=== PATIENT | female | born 1945 | race Caucasian/White ===

== ENCOUNTER 2017-11-26 06:50 | Day surgery (SDC) | payer MEDICARE, OTHER ==
[~2017-11-26] VITALS: Ht 160 cm; Wt 74.8 kg
[~2017-11-26 06:50] MED LIST: AMLODIPINE BESY10 MG; LANTUS100 UNITS/; LEVOTHYROXINE88 MCG PO; LISINOPRIL-HCT1 EAC2; NORCO 7.5-3251 EACH PO; NOVOLOG100 UNITS/; ULTRAM50 MG PO; ZOCOR40 MG
[2017-11-26] MEDS ORDERED: LISINOPRIL-HCT1 EACH PO (07:19)
[2017-11-26] MEDS ORDERED: NOVOLOG100 UNIT/2 (07:20)
[2017-11-26] MEDS ORDERED: SIMVASTATIN40 MG PO (07:20)
--- NOTE | 2017-11-27 06:10 | OR ---
[facility] [address] [place], [place] [address] Signed DATE OF OPERATION: 11/26/2017 SURGEON: Osmel Phipps MD PREOPERATIVE DIAGNOSES: 1. Change in bowel habits with diarrhea and rectal bleeding. 2. Hemorrhoids. 3. Irritable bowel syndrome. POSTOPERATIVE DIAGNOSES: 1. Minimal internal hemorrhoids. 2. A 5 mm polyp, proximal right colon. PROCEDURE: Colonoscopy with hot biopsy. ESTIMATED BLOOD LOSS: None. INDICATIONS: Jaz is a 72-year-old female, asked to see me for colonoscopy. She had a change in bowel habits with diarrhea and rectal bleeding. She said that has now improved. She also has a history of irritable bowel syndrome. Consequently, she had a flexible sigmoidoscopy around age 42. However, she has never had a full colonoscopy. She told me there is no family history of colon cancer or polyps. I gave her a booklet in the office on colonoscopy. We looked at that together along with the risks including, but not limited to, gas bloating, crampy abdominal pain, bleeding, perforation, requiring surgery, and missed diagnosis. We also discussed the need for IV conscious sedation. She expressed understanding and wished to proceed. PROCEDURE NOTE: Jaz was taken into our endoscopy suite and placed in the left lateral decubitus position. She was given IV sedation with 8 mg of Versed and 150 mcg of fentanyl. A digital rectal exam was performed and this was unremarkable. The adult colonoscope was then introduced and advanced all around into the cecum under direct visualization of camera without difficulty. Overall prep was good. She had a couple areas of liquid particulate stool matter, we could not quite irrigate and suction out completely. She had just a tiny 5 mm polyp in the proximal right colon, which we removed with hot biopsy forceps. No evidence of any diverticula. The rectum was unremarkable. Upon retroflexion of the scope, she does have some minimal internal hemorrhoid tissue. After Electronically Signed By: OSMEL PHIPPS MD 11/27/17 0610 PATIENT NAME: JAZ FLOWERS OPERATIVE REPORT DATE OF : 49 REPORT #: [id number] PHYSICIAN: OSMEL PHIPPS MD PCP: WIN ESCOBEDO MD REPORT IS CONFIDENTIAL AND NOT TO BE RELEASED WITHOUT AUTHORIZATION [address] [place], [place] [address] Signed this, the gas was suctioned out and the colonoscope removed. Jaz tolerated the procedure quite well. RECOMMENDATIONS: I will see Jaz back in my office in 7 to 14 days to review her results. Osmel Phipps MD ALB/MODL /[id number] cc: MD Osmel Lopes MD Copies: WIN ESCOBEDO MD, ANDREW L MD ~ Electronically Signed By: OSMEL PHIPPS MD 11/27/17 0610 PATIENT NAME: JAZ FLOWERS OPERATIVE REPORT DATE OF : 49 REPORT #: [id number] PHYSICIAN: OSMEL PHIPPS MD PCP: WIN ESCOBEDO MD REPORT IS CONFIDENTIAL AND NOT TO BE RELEASED WITHOUT AUTHORIZATION
== END 2017-11-26 10:30 | disposition home or self-care (01) ==
LOC: DS 06:50 → OPS 06:50 → DS 08:15 → OPS 08:15
PROVIDERS: Colon & Rectal Surgery
PROC: 0DBK8ZX Excision of Ascending Colon, Via Natural or Artificial Opening Endoscopic, Diagnostic (ICD-10-PCS; principal; 2017-11-26 08:15)
DX: D12.2 Benign neoplasm of ascending colon (principal); K64.8 Other hemorrhoids; I10 Essential (primary) hypertension; K58.9 Irritable bowel syndrome, unspecified; E11.9 Type 2 diabetes mellitus without complications; Z98.890 Other specified postprocedural states; Z88.1 Allergy status to other antibiotic agents; Z79.4 Long term (current) use of insulin; Z79.899 Other long term (current) drug therapy
CPT/HCPCS: 88305; 99153; G0500; J2250; J3010; J7120

== ENCOUNTER 2017-12-03 16:01 | Emergency (ER) | payer MEDICARE, OTHER ==
[~2017-12-03] VITALS: Ht 160 cm; Wt 74.8 kg
[~2017-12-03 16:01] MED LIST changes: +LISINOPRIL-HCT1 EACH PO; +NOVOLOG100 UNIT/2; +SIMVASTATIN40 MG PO
== END 2017-12-03 17:30 | disposition home or self-care (01) ==
LOC: ED 16:01
DX: E11.649 Type 2 diabetes mellitus with hypoglycemia without coma (principal); I10 Essential (primary) hypertension; Z88.1 Allergy status to other antibiotic agents; Z88.2 Allergy status to sulfonamides; Z79.4 Long term (current) use of insulin; Z79.899 Other long term (current) drug therapy
CPT/HCPCS: 80048; 85025; 99283

== ENCOUNTER 2020-10-11 06:11 | Day surgery (SDC) | payer MEDICARE, OTHER ==
[~2020-10-11] VITALS: Ht 160 cm; Wt 81.3 kg
--- NOTE | 2020-10-11 08:21 | NUR ---
10/11/20 0821 Olivia Dawson 0816 PATIENT ARRIVES TO PACU RESTING QUIETLY WITH EYES CLOSED. AWAKE OFF/ON. RESP EVEN AND UNLABORED, NC AT 3 LITERS. PATIENT DENIES PAIN OR NAUSEA. PASSING GAS.
--- NOTE | 2020-10-11 09:14 | NUR ---
LE 0900: PATIENT IS BACK TO DAYSURGERY FROM PACU. SHE IS AWAKE AND DRESSED. GIVEN DISCHARGE INSTRUCTIONS IN PACU. TOLERATING FLUIDS, GIVEN COFFEE, BREAKFAST ORDERED. CALL LIGHT WITHIN REACH. NO ADDITONAL NEEDS AT THIS TIME.
--- NOTE | 2020-10-11 10:38 | OR ---
[facility] [address] [place], [place] [address] Signed DATE OF OPERATION: 10/11/2020 SURGEON: Osmel Phipps MD PREOPERATIVE DIAGNOSES: 1. Anemia. 2. Irritable bowel syndrome. 3. Internal hemorrhoids. 4. History of colonic polyp in 2018. POSTOPERATIVE DIAGNOSES: 1. Minimal diffuse gastritis. 2. A 3 mm periappendiceal orifice polyp. 3. Minimal internal hemorrhoids. PROCEDURES: 1. EGD with CLOtest and biopsy of the antrum. 2. Colonoscopy with hot biopsy. ESTIMATED BLOOD LOSS: None. INDICATIONS: Jaz is a 74-year-old female, asked to see me for upper and lower endoscopy. In 2018, her colonoscopy revealed a small 5 mm adenomatous polyp in the proximal right colon. She also had minimal internal hemorrhoids. She is known to have irritable bowel syndrome as well. However more recently she has been anemic. Consequently, she has been asked to undergo both upper and lower endoscopy. She really has no upper or lower GI complaints. No family history of colon cancer or polyps. In the office, I gave her pamphlets on both upper and lower endoscopy. We looked at those together along with the risks including, but not limited to gas bloating, crampy abdominal pain, bleeding, perforation requiring surgery, and missed diagnosis. We also reviewed the need for IV conscious sedation. She had expressed understanding and wished to proceed. PROCEDURE NOTE: Jaz was taken into our endoscopy suite and placed in the supine semi-recumbent position. She was given a total of 8 mg of Versed and 175 mcg of fentanyl to cover both cases. Lidocaine spray was used to anesthetize the posterior oropharynx. A bite block was utilized. The adult gastroscope was introduced and advanced out into the 2nd portion of the duodenum under direct visualization of camera without difficulty. The Electronically Signed By: OSMEL PHIPPS MD 10/11/20 [facility] PATIENT NAME: JAZ FLOWERS OPERATIVE REPORT DATE OF : 49 REPORT #: [id number] PHYSICIAN: OSMEL PHIPPS MD PCP: WIN ESCOBEDO MD REPORT IS CONFIDENTIAL AND NOT TO BE RELEASED WITHOUT AUTHORIZATION [facility] [address] [place], [place] [address] Signed duodenum and pyloric channel were unremarkable. Her stomach showed very mild erythematous changes. We went ahead and took a biopsy of the antrum for CLOtest as well as pathologic review. Upon retroflexion of scope, there was no evidence of a hiatal hernia. The scope was withdrawn up through the area of GE junction, which was compliant without stricture. The Z-line remains intact. There was no Hurtado's mucosa. No distal esophagitis. The middle and upper esophagus were unremarkable. After this, the gas had been suctioned out and the gastroscope removed. Jaz tolerated her upper endoscopy quite well. Jaz was rotated into the left lateral decubitus position. She was maintained on IV sedation with the Versed and fentanyl. A digital rectal exam was unremarkable. The adult colonoscope was introduced and advanced under direct visualization of camera up to the hepatic flexure. It took a little extra sedation and abdominal compression in order to advance the scope down into the cecum itself. Her prep was good. She had a few areas of liquid stool, which was suctioned out. We could easily see the appendiceal orifice and the ileocecal valve. Next to the appendiceal orifice was a very tiny 3 mm polypoid lesion. It was easily removed with hot biopsy forceps. The rest of the colon was completely unremarkable. The rectum was unremarkable. Upon retroflexion of scope again, she has very minimal internal hemorrhoid tissue. After this, the gas was suctioned out and colonoscope removed. Jaz tolerated the lower endoscopy quite well. RECOMMENDATIONS: I will see Jaz back in my office in 7 to 14 days to review her results. Osmel Phipps MD ALB/MODL /[id number] cc: MD Osmel Lopes MD Copies: WIN ESCOBEDO MD Electronically Signed By: OSMEL PHIPPS MD 10/11/20 1038 PATIENT NAME: JAZ FLOWERS OPERATIVE REPORT DATE OF : 49 REPORT #: [id number] PHYSICIAN: OSMEL PHIPPS MD PCP: WIN ESCOBEDO MD REPORT IS CONFIDENTIAL AND NOT TO BE RELEASED WITHOUT AUTHORIZATION [address] [address] Signed OSMEL PHIPPS MD ~ Electronically Signed By: OSMEL PHIPPS MD 10/11/20 1038 PATIENT NAME: JAZ FLOWERS OPERATIVE REPORT DATE OF : 49 REPORT #: [id number] PHYSICIAN: OSMEL PHIPPS MD PCP: WIN ESCOBEDO MD REPORT IS CONFIDENTIAL AND NOT TO BE RELEASED WITHOUT AUTHORIZATION
--- NOTE | 2020-10-11 12:15 | NUR ---
PT IS DOING WELL, GETS HERSELF UP OOB TO USE THE RESTROOM. SHE IS GIVEN MORE COFFEE. CALL LIGHT WITHIN REACH.
--- NOTE | 2020-10-11 13:15 | NUR ---
PT MET DC CRITERIA. TAKEN TO TAX VIA , SHE IS ABLE TO TRANSFER HERSELF FROM TO [facility].
--- NOTE | 2020-10-14 15:10 | PATH ---
[facility] [address] [facility] [place], [place] [address] Signed SPECIMEN(S): A ANTRUM/PYLORUS SPECIMEN(S): B CECUM POLYP SPECIMEN SOURCE: A. ANTRUM/PYLORUS B. CECUM POLYP CLINICAL HISTORY: Anemia. Postop: Gastritis, polyp, internal hemorrhoids. EGD, colonoscopy. MICROSCOPIC DESCRIPTION: Histologic sections of all submitted blocks are examined by light microscopy. These findings, together with the gross examination, support the pathologic diagnosis. FINAL PATHOLOGIC DIAGNOSIS: A. Antrum / pylorus, biopsy: - Benign gastric-type mucosa, negative for evidence of Helicobacter organisms on routine HE stained sections. B. Cecum polyp, biopsy: - Polypoid colonic mucosa with prominent biopsy artifact and features focally favoring tubular adenoma (one fragment). [id number] GROSS DESCRIPTION: Two specimens are received in two containers, labeled "BH." A. The specimen, labeled "BH, 1," and designated on the requisition "antrum biopsy," is received in formalin and consists of one mohan soft tissue fragment that measures 0.4 cm in greatest dimension. The specimen is entirely submitted in cassette (A1). B. The specimen, labeled "BH, 2," and designated on the requisition "cecum polypectomy," is received in formalin and consists of two mohan soft tissue fragments that measure 0.3 cm in greatest dimension. The specimen is entirely submitted in cassette (B1). AI (under the direct supervision of a pathologist) The Gross Description was prepared using a voice recognition system. The report was reviewed for accuracy; however, sound-alike word errors, addition and/or deletions may occur. If there is any question about this report, please contact Client Services. PERFORMING LABORATORY: The technical component was performed by [employer], Rebecca Gloverbaljit Yunior, PATIENT NAME: MARIE FLOWERS PATHOLOGY DATE OF : 49 REPORT #: [id number] PHYSICIAN: [facility] PCP: WIN ESCOBEDO MD REPORT IS CONFIDENTIAL AND NOT TO BE RELEASED WITHOUT AUTHORIZATION [facility] [address] [place] [id number] [place] [address] (Records Clerk: Naima Chang MD; CLIA# [id number]). Professional interpretation was performed by [employer], [place] [id number]. Diagnostician: Uli Christopher MD Pathologist Electronically Signed 10/14/2020 Copies: ~ PATIENT NAME: MARIE FLOWERS PATHOLOGY DATE OF : 49 REPORT #: [id number] PHYSICIAN: [facility] PCP: WIN ESCOBEDO MD REPORT IS CONFIDENTIAL AND NOT TO BE RELEASED WITHOUT AUTHORIZATION
== END 2020-10-11 13:10 | disposition home or self-care (01) ==
LOC: OPS 06:11 → DS 06:11 → OPS 06:45 → DS 06:45 → OPS 13:10
PROVIDERS: ATTEND Colon & Rectal Surgery
PROC: 0DB68ZX Excision of Stomach, Via Natural or Artificial Opening Endoscopic, Diagnostic (ICD-10-PCS; principal; 2020-10-11 06:45)
PROC: 0DBH8ZX Excision of Cecum, Via Natural or Artificial Opening Endoscopic, Diagnostic (ICD-10-PCS; 2020-10-11 06:45)
DX: K29.70 Gastritis, unspecified, without bleeding (principal); D12.1 Benign neoplasm of appendix; D13.1 Benign neoplasm of stomach; D12.0 Benign neoplasm of cecum; K64.8 Other hemorrhoids; E10.9 Type 1 diabetes mellitus without complications; I10 Essential (primary) hypertension; J30.2 Other seasonal allergic rhinitis; D64.9 Anemia, unspecified; I70.0 Atherosclerosis of aorta; K04.7 Periapical abscess without sinus; E72.11 Homocystinuria; E78.1 Pure hyperglyceridemia; E03.9 Hypothyroidism, unspecified; E55.9 Vitamin D deficiency, unspecified; Z79.4 Long term (current) use of insulin; Z88.1 Allergy status to other antibiotic agents; Z79.899 Other long term (current) drug therapy
CPT/HCPCS: 86677; 88305; 99153; G0500; J2250; J3010; J7121

== ENCOUNTER 2023-01-21 17:12 | Inpatient (IN) | payer MEDICARE, OTHER ==
[~2023-01-21] VITALS: Ht 160 cm; Wt 78.0 kg
[2023-01-21] VITALS (11 sets, daily range): BP systolic 102–137; BP diastolic 44–52
[~2023-01-21 17:12] MED LIST changes: -AMLODIPINE BESY10 MG; +AMLODIPINE BESY10 MG PO
--- NOTE | 2023-01-21 21:45 | NUR ---
PT TRANSFERRED TO ICU WITH ED RN AND RT PRESENT. BEDSIDE NURE REPORT OBTAINED, AND PT TRANSFERRED TO ICU BED WITHOUT COMPLICATIONS. LS AUSCULTATED WITH EQUAL AND BILATERAL BS NOTED. PT IS COMPLIANT WITH THE VENTILATOR. COUGH/ GAG REFLEX NOTED. PT WITH RASS OF -4 WHILE ON LIGHT SEDATION. PERRL AND BRISK AT 3. PT DOES NOT FOLLOW COMMANDS, AND ONLY RESPONDS TO PAINFUL STIMULI ON BILAT. LOWER EXTREMITIES. VENTILATOR SETTINGS CONFIRMED WITH RT. ALARM PERAMTERS SET AND SOFT RESTRAINTS APPLIED. V/S ASSESSED. CENTRAL LINE AND PIV PATENT. CENTRAL LINE AND MEAD CATH BATHED IN CHG WIPE. CPOT 0.
--- NOTE | 2023-01-21 23:32 | NUR ---
US AT BEDSIDE. VERSED GTT OFF, PROP GTT STARTED AT 10MCGS. PT WITH RASS OF -4.
[2023-01-22] VITALS (33 sets, daily range): BP systolic 107–175; BP diastolic 39–71
--- NOTE | 2023-01-22 06:31 | NUR ---
PT REMAINS INTUBATED AND SEDATED WITH VENTILATOR SETTINGS OF AC/VC, PEEP OF 8 WITH 21% FIO2. PT REMAINS UNRESPONSIVE TO VERBAL STIMULI. PT IS NOW RESPONDING TO PAINFUL STIMULI ON ALL FOUR EXTREMITIES WITH FLEXATION MOTION. PT WITH NOTED SPONTANEOUS MOVEMENT IN ALL FOUR EXTREMITIES. PERRL AND BRISK AT 3. PT HAS BEEN IN A NSR TO ST, HYPOTENSIVE AND A-FEBRILE. PT CONTINUES TO REQUIRE NOREPI GTT FOR BP SUPPORT. ATTEMPTED TO WEAN NOREPI GTT OF, HOWEVER, UNABLE TO DO SO A RESULT OF HYPOTENSION. NOREPI GTT CONTINUES AT 5 MCG. LS CLEAR. PT WITH COUGH AND GAG REFLEX. ETT SUCTIONED WITH THICK, CLEAR SECRETIONS. PT TURNED Q-2 HRS TO MAINTAIN SKIN INTEGRITY. ORAL CARE PERFORMED Q-4 HRS IN ACCORDANCE WITH VAPS BUNDLE. LAST BM UNKNOWN. UO DIMINISHED, MD AWARE. LABS: LACTATE NOW 2, BUN/ CREATNINE IMPROVED TO 70/1.95. CK 3012. H/H STABLE. ANION GAP CLOSED AT 0000, CURRENTLY 14.7. CO2 NOTED AT 25. INSULIN GTT REMAIN ON
--- NOTE | 2023-01-22 07:24 | EKG ---
[facility] [address] [facility] [place], [place] [address] Signed Normal sinus rhythm Anterior infarct , age undetermined Abnormal ECG No previous ECGs available Confirmed by DAMARIS CLEMENTE MD ([id number]) on 01/22/2023 7:24:43 AM Electronically Signed By: DAMARIS CLEMENTE MD 01/22/23 0724 PATIENT NAME: MARIE FLOWERS Electrocardiogram DATE OF : 49 PHYSICIAN: DAMARIS CLEMENTE MD REPORT #: [id number] REPORT IS CONFIDENTIAL AND NOT TO BE RELEASED WITHOUT AUTHORIZATION
--- NOTE | 2023-01-22 07:58 | NUR ---
REPORT REC'D FROM GUARD ENTRANCE REGISTRAR. BEDSIDE DOUBLE CHECK PERFORMED LOOKING AT DRIPS. CHEST XRAY DONE. ABG DRAWN. PT'S DAUGHTER MERON IN ROOM AND NOW SON GREGORY ARRIVES. PLAN OF CARE BEING DISCUSSED. PT'S GRANDDAUGHTER ALSO IN ROOM. CBG 192, INSULIN TO 2.8 UNITS/HR. IVF CONTINUE - LR AT 250 ML/HR, D5 1/2 NS AT 125, PROPOFOL AT 10 MCG/KG/MIN, FENTANYL AT 25 MCG/HR, NOREPI AT 5 MCG/MIN.
--- NOTE | 2023-01-22 08:36 | NUR ---
DR. CLEMENTE IN ROOM TO SEE PATIENT AND DISCUSS WITH FAMILY THE PLAN OF CARE. PT TO REMAIN ON INSULIN GTT FOR NOW - WILL RE ASSESS THIS LATER. PT'S SEDATION TURNED OFF FOR SEDATION AWAKENING TRIAL. FAMILY PRESENT AT BEDSIDE AND ATTENTIVE TO PATIENT. PATIENT SHAKING HEAD SIDE TO SIDE, BUT NOT FULLY OPENING EYES. PT SEEMS UNCOMFORTABLE, BROWS ARE FURROWED. PT MOVING LEGS AND ARMS SPONTANEOUSLY AND EVEN FOLLOWING COMMAND OF SQUEEZING HANDS, BUT EFFORT IS WEAK. ORAL CARE PROVIDED. WILL CONTINUE TO MONITOR CLOSELY.
--- NOTE | 2023-01-22 09:12 | NUR ---
PT RESTIGN SEMI-FOWLERS, FAMILY AT BEDSIDE. PT NOT FOLLOWING COMMANDS, MORE SPONTANEOUS MOVEMENT OF HEAD AND EXTREMITIES. URIONE OUTPUT 24. CBG 190, REMAINS AT 2.8 UNITS/HR ON INSULIN GGT. PROPOFOL REMAINS OFF FOR SEDATION AWAKENING TRIAL. LR INFUSING AT 250ML/HR, D5 1/2 NS INFUSING AT 150ML/HR. FENTANYL INFUSING AT 10MCG/HR, NOREPINEPHRIN INFUSING AT 2MCG/MIN. CERT OCCUPATIONAL THERAPY ASST AT BEDSIDE, ADJUSTING VENT SETTINGS.
[2023-01-22] MEDS ORDERED: METOPROLOL SUCC50 MG PO (09:17)
[2023-01-22] MEDS ORDERED: INSULIN AS100 UNIT/2 SUB-Q (09:19)
--- NOTE | 2023-01-22 10:20 | NUR ---
PT REPOSITIONED TO RIGHT TILT, PT WITH SMALL BM, PERICARE PERFORMED. URINE OUTPUT 16ML. IV FLUIDS INFUSING LR AT 250NL/HR, D5 1/2NS AT 150 ML/HR, FENTANYL AT 25MCG/HR, INSULIN GGT DECREASED TO 2.4 FOR BLOOD GLUCOSE 164, NOREPINEPHRIN AND PROPOFOL REMAIN OFF AT THIS TIME. PT RASS -2. VENTILATOR SETTINGS WITH SPONTANEOUS RESP 14, FIO2 21%, PEEP 5. FAMILY REMAINS AT BEDSIDE.
--- NOTE | 2023-01-22 10:32 | NUR ---
BMP DRAWN FROM RIGHT IJ CENTRAL LINE PROXIMAL PROT, FLUSHED, HUB CHANGED. IV FLUIDS, FENTANYL GGT AND INSULIN GGT RESUMED.
--- NOTE | 2023-01-22 11:13 | NUR ---
PT RESTING IN RIGHT TILT, FAMILY AT BEDSIDE. PT WITH RASS -4, PROPOFOL REMAINS OFF. PT WITHOU SPONTANEOUS RESPIRATIONS, VENT ALARMING APNEA, RESP 16 PER VENTILATOR, MEDICARE COMPLIANCE AUDITOR CALLED. BG 168, REMIANS AT 2.4 UNITS/HR. URINE OUTPUT LOW 15ML.
--- NOTE | 2023-01-22 11:23 | NUR ---
ASSISTED LIVING DIRECTOR AT BEDSIDE, PT PLACED TO VC-AC, PEEP 5.0, RR 16, VT 400, FIO2 21%.
--- NOTE | 2023-01-22 11:30 | NUR ---
PT FAILED SPT. TRIAL AT 1115, was on apnea ventilation, put back on prior setting VC/AC,
--- NOTE | 2023-01-22 11:38 | NUR ---
PT ON VENT, FAMILY IN RM. GAVE ENCOURAGEMENT AND SUPPORT. FAMILY FEELS WELL CARED FOR AND INFORMED. GAVE P.SHAWL AND BLESSING. WILL FOLLOW
--- NOTE | 2023-01-22 11:53 | NUR ---
DISCUSSED WITH DR. CLEMENTE PT'S FAIL OF SPONTANEOUS BREATHING TRIAL. PT NOW BACK ON FULL SUPPORT OF VENT, VC/AC 16, VT 400, FI02 21%, PEEP 5. PT'S FAMILY REMAINS IN ROOM. PT WILL REMAIN ON VENT TODAY AND WILL DO SBT AGAIN TOMORROW TO EVAL EXTUBATION. IVF CONTINUE AT 250ML/HR PLUS 125 ML/HR, INSULIN GTT REMAINS ON PER TITRATING PROTOCOL. IV FENTANYL INFUSING AT 10 MCG/HR AT THIS TIME. PROPOFOL HAS BEEN OFF SINCE AROUND 0830 THIS AM AND WILL TURN BACK ON NEEDED TO MAINTAIN A RASS AT -1. ETC02 IS 26 AT THIS TIME. 1200 ABG TO BE CANCELLED AND RESCHEDULED TOMORROW AM. LEVOPHED REMAINS OFF. WILL CONTINUE TO MONITOR CLOSELY.
--- NOTE | 2023-01-22 12:29 | NUR ---
PT REPOSITIONED TO LEFT TILT, PT WITH SMALL BM, PERICARE PERFORMED. PT WITH EYES OPEN, THRASHING HEAD SIDE TO SIDE, PROPOFOL GGT RESUMED AT 10 MCG/KG/MIN. FAMILY UPDATED ON RESUMING SEDATION. ORAL CARE AND SUCTION PROVIDED.
--- NOTE | 2023-01-22 14:18 | NUR ---
PT WITH RASS -3, BP 102/41 (60), PROPOFOL GGT STOPPED AT 1357. PT REPOSITIONED TO FLOATED SEMI FOWLERS. PT WITH STOOL SMEAR, PERICARE PROVIDED. IV FLUIDS CONTINUE, FENTANYL AT 10MCG/HR. BG 185, INSULIN GGT AT 1.2 UNITS/HR.
--- NOTE | 2023-01-22 14:28 | NUR ---
CALLED RT TO WITHDRAW ETT 3 CM PER RECOMMENDATION FROM THIS AM CXR. VERIFIED WITH DR. CLEMENTE. WILL REPEAT CXR AFTER.
--- NOTE | 2023-01-22 14:51 | NUR ---
ACCOUNT GENERAL MANAGER PULLED BACK ETT TO 22 AT THE TEETH, REPEAT CHEST XRAY COMPLETE.
--- NOTE | 2023-01-22 15:12 | NUR ---
BG 193, INSULIN GGT INCREASED TO 2.8 UNITS/HR. FAMILY AT BEDSIDE, UPDATED ON PT STATUS AND RECORDS RECEIVED FROM PCP. IV FLUIDS INFUSING LR AT 250ML/HR, D5 1/2 NS AT 125 ML/HR, FENTANYL AT 10 MCG/HR. IV ZOSYN INFUSION STARTED.
--- NOTE | 2023-01-22 16:26 | NUR ---
AT 1600, LABS DRAWN FROM RIGHT IJ. PT BG 190, INSULIN GGT REMAINS AT 2.8 UNITS/ HR. PT TURNED, BM SMEAR, PERICARE PROVIDED. PT POSITIONED TO RIGHT TILT, RESTRAINTS IN PLACE FOR PROTECTION OF LINES AND TUBES. ORAL CARE PROVIDED. FENTANYL GGT INCREASED TO 25 MCG/HR, PROPOFOL GGT REMAINS OFF. URINE OUTPUT 48ML. PT APPEARS COMFORTABLE AT THIS TIME.
--- NOTE | 2023-01-22 16:49 | NUR ---
CALLED DR. CLEMENTE TO ADDRESS LABS, U/O, AND GIVE GENERAL UPDATE. NEW ORDERS REC'D FOR DECREASING IVF TO 125 ML/HR FOR THE LR, KEEPING D5 1/2 NS AT 125 ML/HR. WILL CONTINUE TO M ONITOR.
--- NOTE | 2023-01-22 17:01 | NUR ---
Pt remains on ventilator. Family out of room. Per RN pt has home issues. Will follow up with family tomorrow.
--- NOTE | 2023-01-22 17:07 | NUR ---
LR DECREASED TO 125ML/HR PER ORDER, IV K RIDER INFUSING. BG 173, INSULIN GGT DECREASED TO 2.4 UNITS/HR.
--- NOTE | 2023-01-22 18:35 | NUR ---
PT WITH COUGH, LUNG SOUNDS COARSE, ETT SUCTIONING PROVIDED, SMALL AMOUNT OF THICKL SECRETIONS.
--- NOTE | 2023-01-22 20:21 | NUR ---
PT ASSESSED, BEDSIDE NURSE REPORT OBTAINED FROM DAYSHIFT. SAFETY CHECK PERFORMED AND PUMPS VERIFIED WITH OUTGOING SHIFT. PT RESPONDS TO PAINFUL STIMULI ON ALL FOUR EXTREMITIES. PT OPENS EYES TO PAINFUL STIMULI. PT CONTINUES TO NOT FOLLOW COMMANDS AT THIS TIME. PERRL AND BRISK TO LIGHT. BASELINE VITALS ASSESSED. MEAD CARE PERFORMED WITH TWO RNS PRESENT. ALARM PERAMETERS SET. VENTILATOR SETTINGS CONFIRMED WITH RT AT BEDSIDE. TRIPLE LUMEN CENTRAL LINE PATENT IN ALL THE LUMENS. PIV PATENT IN L. WRIST. WITH CONTINUES TO BE IN SOFT WRIST RESTRAINTS D/T UNPREDICTABLE BEHAVIORS AND CONCERN FOR SELF EXTUBATION. CPOT 0.
[2023-01-23] VITALS (19 sets, daily range): BP systolic 102–183; BP diastolic 48–109
--- NOTE | 2023-01-23 02:23 | NUR ---
PT WITH DEMINISHED UO. MEAD CATH FLUSHED WITH 30 CC OF STERILE WATER. 175 CC OF UO NOTED IMMEDIATELY.
--- NOTE | 2023-01-23 04:33 | NUR ---
LAB CALLED TO REPORT GRAM + COCCI IN BOTH ANAEROBIC AND AEROBIC BC.. DR. CLEMENTE NOTIFIED.
--- NOTE | 2023-01-23 07:34 | NUR ---
PT REMAINS INTUBATED, AC/VC, PEEP OF 15 WITH 21% FIO2. NO NOTED CHANGES IN OXYGENATION OR VENTILATION THROUGHOUT THE NIGHT. PT WITH IMPROVED NEURO STATUS. PT WITH PURPOSEFUL MOVEMENT TO PAINFUL STIMULI. PT VISUALLY TRACKS AND RESPONDS TO VISUAL THREAT. PT IS NOW FOLLOWING SIMPLE COMMANDS, ABLE TO SQUEZE HANDS AND WIGGLE TOES. PT HAS BEEN IN A NSR, NORMOTENSIVE AND A-FEBRILE THROUGHOUT THE NIGHT. LS NOTED TO BE COARSE THROUGHOUT. PT WITH INCREASED THICK, TYSON SECRETIONS WITH STREAKS OF BLOOD. OGT WITH 200 CC OUTPUT THROUGHOUT THE NIGHT. PT WITH 40-50 CC UO. LAST BM NOTED ON 01/23. PT TURNED Q-2 HRS TO MAINTAIN SKIN INTEGRITY. ORAL CARE PERFORMED Q-4 HRS. LABS: RESOLVED LEUKOCYTOSIS. CREATININE IMPROVED TO 1.08. K LOW AT 3.3. ANION GAP 11.3. MAG/ PHOS NOTED TO BE LOW.
--- NOTE | 2023-01-23 07:35 | NUR ---
HANDOFF REPORT RECEIVED FROM SPECIFICATION CONSULTANT RN. PT REPOSITIONED TO FLOATING SEMI FOWLERS. PT WITH SMALL SM, PERICARE PERFORMED. PT ON VENTILATOR, 22 AT THE TEETH, TUBE SIZE 7.5. VENT SETTINGS, PEEP 5.0, TIDAL VOLUME 400, FIO2 21% RR 15, PIP 16 ETCO2 27 AND 95% SPO2. PT MORE ALERT, FOLLOWING COMMANDS, SPONTANEOUS EYE OPENING AND PURPOSEFUL MOVEMENTS OF EXTREMITIES. MEAD CATH IN PLACE, DRAINING CLEAR YELLOW URINE. LUNG SOUNDS CLEAR, HR 88 AND REGULAR, BOWEL TONES ACTIVE. OG TO LIWS. IV FLUIDS INFUSING D5 1/2 NS AT 125NL/HR, FENTANYL AT 15MCG/HR AND INSULIN GGT AT 1.2 UNITS/HR TO RIGHT IJ. PT WITH BLE EDEMA 1+, PULSE EQUAL AND STRONG. FAMILY AT BEDSIDE.
--- NOTE | 2023-01-23 08:17 | NUR ---
VENT CHANGED TO SPONTANOUS MODE POST SEDATION VACATION. GARRY WELL WOB OK APNEA VENT AND ALARMS SET. RN AT BESIDE.
--- NOTE | 2023-01-23 08:30 | NUR ---
PT BG 216, INSULIN GGT INCREASED TO 2.8 UNITS/HR. IV MAGNESIUM AND POTASSIUM RIDERS INFUSING. PT CONTINUES TO RESPOND TO VERBAL STIMULI, FOLLOWING COMMANDS. ENVIRONMENTAL JOURNALIST PLACED PT ON SPONTANEOUS-CPAP VENTILATOR SETTINGS AT 815, PT TOLERATING WELL THIS TIME. LEFT HAND IV FLUSHED AND PATENT. RIGHT IJ WITH BLOOD RETURN. FENTANYL GGT REMAINS OFF AT THIS TIME, PT APPEARS COMFORTABLE. FAMILY AT BEDSIDE AND UPDATED ON PLAN.
--- NOTE | 2023-01-23 09:00 | NUR ---
Spoke with pts son and daughter; Juan and Carmenza. Pt lives alone. She is a retired teacher. Per children she does not manage her diabetes and they have had several incidents of highs and lows where friends or family have called the son to check on her. They also state pt has severe knee pain which limits her. Pt refuses surgery as her mother after surgery. Both feel pt will need a SNF on dc as she has times where she is not mentally clear or makes poor decisions. Both state pt does not include them on her medical appointments and declines for them to assist her. We discussed when pt is able to speak, I will discuss a plan with her. I will let her know their concerns, but I cannot make her go anywhere she doesn't want. Family are very loving and concerned and state understanding. We discussed SNFs and BRAN and costs. Pt remains on a ventilator and I will follow up with her. Per Dr. Martinez, she plans on extubating this pt today.
--- NOTE | 2023-01-23 09:21 | NUR ---
PT BG 181, INSULIN GGT DECREASED TO 2.4 UNITS/HR. PT REMIANS OFF FENTANYL GGT. REMAINS ON SPONTANESOU CPAP VENTILATOR MODE, RR 13, FIO2 30, PEEP 5, TOLERATING WELL. ORAL CARE COMPLETED. PT APPEARS COMFROTABLE. FAMILY MEETING WITH CASE MANAGEMENT TO DISCUSS DISCHARGE PLANNING.
--- NOTE | 2023-01-23 10:12 | NUR ---
DR. CLEMENTE AND FINANCIAL SALES REPRESENTATIVE AT BEDSIDE. PT EXTUBATED, TOLERATED WELL. PT NOW OF 3L NC, O2 SATS 98%, RR 20, LUNG SOUNDS COARSE. ORAL CARE PROVIDED. RESTRAINTS DISCONTINUED.
--- NOTE | 2023-01-23 10:46 | NUR ---
IV FLUIDS, INSULIN GGT, AND FENTANYL GGT DISCONTINUED. PT RESTING QUIETLY IN BED, RR 16, O2 SATS 96%.
--- NOTE | 2023-01-23 11:24 | NUR ---
DISCUSSED WITH PHARMACY RUNNING POTASSIUM CHLORIDE CONCURRENTLY WITH POTASSIUM PHOSPHATES, OK TO RUN TOGETHER.
--- NOTE | 2023-01-23 11:54 | NUR ---
BESIDE SWALLOW SCREENING COMPLETED, PT TOLERATED WELL. PT PROVIDED WITH APPLE SAUCE, TOLERATING WELL, DOES REQUIRE SOME ASSISTANCE WITH FEEDING, ENCOURAGE SELF FEEDING. IV POTASSIUM CHLORIDE RIDER STARTED. DISTAL PORT OF RIGHT IJ WITHOUT BLOOD RETURN, HEPARIN FLUSHED, WILL REASSESS.
--- NOTE | 2023-01-23 12:27 | NUR ---
FAMILY AT BEDSIDE, UPDATED ON PT STATUS AND NEW MEDICATIONS. PT TOLERATING CLEAR LIQUID DIET WELL, ABLE TO SWALLOW METOPROLOL WITHOUT DIFFICULTY.
--- NOTE | 2023-01-23 13:59 | NUR ---
PT ASSISTED WITH WASHING AND COMBING HAIR. PT ORIENTED TO ALL BUT DATE, DOES NOT REMEMBER EVENTS LEADING TO ADMISSION. PT WITH LARGE URINE OUTPUT AFTER LASIX. DAUGHTER AND GRANDAUGHTER AT BEDSIDE. PT DENIES PAIN AND IS RESTING COMFORTABLY.
--- NOTE | 2023-01-23 14:00 | NUR ---
PT IS BEING EXTEBATED, FAMILY NEARBY. WILL FOLLOW
--- NOTE | 2023-01-23 14:00 | NUR ---
Spoke with pt and her children. Pt states she is feeling ok, not sure what has happened. Discussed she is in the hospital. Pt does not remember why she is here. We discussed what she would like to do when she is ready for dc and she states she would go to a SNF for rehab. I gave them a list of placement options. Family's first choice is [facility], and [facility]. I will fax pts chart after checking for bed availability.
--- NOTE | 2023-01-23 14:30 | NUR ---
PT COMPLAINT OF GENERAL ACHES, NIO FOR TYLENOL OK BY DR. CLEMENTE. IV ZOSYN INFUSING. POTASSIUM PHOSPAHTES INFUSION COMPLETED, LINE FLUSHED AND HEP LOCKED.
--- NOTE | 2023-01-23 14:50 | NUR ---
PT GIVEN TYLENOL FOR GENERAL PAIN. FAMILY AT BEDSIDE. DENIES OTHER NEEDS AT THSI TIME.
--- NOTE | 2023-01-23 16:05 | NUR ---
PT CONTINUES TO REMIAN ON 3L NC, O2 SATS 96%, LUNG SOUNDS CLEAR WITH OCCASIONAL LOOSE COUGH. PT STATES TYLENOL DID HELP WITH GENERAL PAIN. PT CONTINUES TO HAVE EDEMA IN BLE 2+, LARGE URINE OUTPUT AFTER IV LASIX. CMS INTACT, PULSES STRONG AND EQUAL. IV ZOSYN INFUSING TO RIGHT IJ. DISCUSSED WITH PT THAT PT/OT WOULD BE COMING TO WORK WITH HER. PT DENIES OTHER NEEDS AT THIS TIME.
--- NOTE | 2023-01-23 16:10 | NUR ---
THIS RN CONTINUES TO ASSIST MARCIAL RN NEEDED WITH PATIENT CARES. PATIENT IS CURRENTLY WORKING WITH PT AND OT. FAMILY AT THE BEDSIDE. NO OTHER NEEDS AT THIS TIME.
--- NOTE | 2023-01-23 16:11 | NUR ---
PT WORKING WITH PT/OT.
--- NOTE | 2023-01-23 16:19 | NUR ---
DR. DAVIS CALLED TO REQUEST INSULIN GGT RATES FROM THIS AM, PROVIDED.
--- NOTE | 2023-01-23 17:32 | NUR ---
PT SITTING IN CHAIR, EATING DINNER. PT BLOOD GLUCOSE 404, DR. DAVIS NOTIFIED, ORDERS FOR INSULIN CHANGED. PT GIVEN 12 UNITS HUMALOG AND 20 UNITS GLARGINE. BLOOD CULTURES AND LABS DRAWN FROM RIGHT IJ, LAB DRAWING SECOND SET OF BLOOD CULTURES. RIGHT IJ INITIALLY WITH DIFFICULTY DRAWING BACK BLOOD, HUBS CHANGED AND NOW WITH BRISK BLOOD RETURN. FAMILY AT BEDSIDE.
--- NOTE | 2023-01-23 20:26 | NUR ---
PT ASSESSED, AND FOUND TO BE LAYING IN HOSPITAL IN NO APPARENT DISTRESS. PT IS ALERT AND ORIENTED TO PERSON AND EVENT. PT IS CAM ICU POSITIVE. EDUCATION PROVIDED TO PT AND FAMILY REGARDING THE IMPORTANCE OF REST WITH SLEEP. PT ABLE TO FOLLOW COMMANDS IN ALL FOUR EXTREMITIES. CMS INTACT X 4. R. LOWER EXTREMITY NOTED TO BE WEAKER IN PUSH/PULL THAN LEFT. PT DENIES ANY PAIN OR DISCOMFORT AT THIS TIME. RESPIRTIONS ARE NON-LABORED. V/S ASSESSED. ALARM LIMITS SET. NURSE CALL LIGHT PLACED AT PATIENTS SIDE AND PT INSTRUCTED ON HOW TO USE IT. CENTRAL LINE ASSESSED, 2 LUMENS CONTINUE TO BE HEPARIN LOCKED WHILE THE MEDIAL LUMEN FLUSHES AND DRAWS BACK BLOOD. L. PIV REMOVED. PT OR FAMILY WITH NO QUESTIONS OR CONCERNS AT THIS TIME.
--- NOTE | 2023-01-23 22:30 | NUR ---
PT FOUND TO BE INCONT. OF STOOL. PT CLEANED, AND PLACED IN NEW CAROLE. MEAD CARE PERFORMED WITH CHG WIPE.
[2023-01-24] VITALS (12 sets, daily range): BP systolic 125–157; BP diastolic 51–92
--- NOTE | 2023-01-24 01:57 | NUR ---
IV PUMP ALARMING, RESOLVED. IV FLUSHED WITH NS AND LOCKED. NO OTHER NEEDS AT THIS TIME. CALL LIGHT IN REACH.
--- NOTE | 2023-01-24 06:06 | NUR ---
PT REMAINS AWAKE, WITH IMPROVED LEVEL OF ORIENTATION. PT IS NOW A&O TO PERSON, PLACE AND EVENT. PT IS UNAWARE OF TIME. PT FOLLOWS SIMPLE COMMANDS, CMS REMAINS INTACT X 4. PT WITH MINIMAL SLEEP THROUGHOUGH THE NIGHT. PRN MELATONIN ADMINISTERED WITH NO NOTED IMPROVEMENT. PT CONTINUES TO BE CAM ICU POSITIVE. PT HAS BEEN IN A NSR, NORMOTENSIVE AND A-FEBRILE. RESPIRATIONS ARE NON-LABORED, LS CLEAR AND PT IS WITH AN OCCASIONAL STRONG COUGH. PT AND FAMILY EDUCATED IN BREATHING EXERCISES. PT WITH ADEQUATE UO. LABS: NO NEW LABS OBTAINED.
--- NOTE | 2023-01-24 07:30 | NUR ---
PATIENT SHIFT REPORT RECIEVED FROM AIRCRAFT ENGINE MECHANIC OVERHAUL ANNA EMERY. PATIENT HAS NOT SLEPT OVERNIGHT. PATIENTS SON AND DAUGHTER IN AT THE BEDSIDE. CALL LIGHT WITHIN REACH. BED IN LOWEST POSITION.
--- NOTE | 2023-01-24 08:40 | NUR ---
PATIENT BLOOD SUGAR DONE AND PATIENT SITTING UP IN BED. BREAKFAST PROVIDED. PATIENTS FAMILY AT THE BEDSIDE. PATIENT ASSESSMENT COMPLETED. PATIENT BREATH SOUNDS CLEAR AND DIMINISHED. PATIENT ON 3L NC. BOWEL TONES ACTIVE. PER REPORT PATIENT HAD A BM OVERNIGHT. PATIENT SIENE MAKER STRONG AND EQUAL. PATIENT WORKING ON HER BREAKFAST NOW AT THIS TIME. VITALS DONE. CALL LIGHT PROVIDED. PATIENT CALLS APPROPRIATELY.
--- NOTE | 2023-01-24 10:30 | NUR ---
THIS RN AND MD DAVIS IN TO DISCUSS PLAN OF CARE WITH PATIENT. PATIENTS FAMILY AT THE BEDSIDE. PATIENT WILL BE TRANSITIONED TO [facility] STATUS TODAY BUT WILL BE STAYING HERE IN THE SAME ROOM UNTIL A ROOM IS AVAILABLE ON [facility]. PATIENT WILL NEED REHAB TO GET STRONGER BEFORE GOING HOME. PATIENT STATES SHE IS WILLING TO DO THIS, BUT REALLY JUST WANTS TO GO HOME. REVIEWED PATIENTS SAFETY WITH HER AND PATIENT UNDERSTANDS WHY SHE NEEDS SOME REHAB FIRST. CASE MANAGEMENT WILL BE IN TO FOLLOW UP WITH PATIENT. TELE DCD. OCCUPATIONAL THERAPY IN TO WORK WITH PATIENT.
--- NOTE | 2023-01-24 11:20 | NUR ---
PATIENT BACK IN HER ROOM. PATIENT WORKED WITH OCCUPATIONAL THERAPY AND WAS ABLE TO GO OUTSIDE. WITH THERAPIST AND PATIENTS FAMILY. NEW BEDDING IN PLACE AND PATIENT SITTING UP IN THE CHAIR WITH FAMILY AT THE BEDSIDE. PATIENT HAS CATHETER PRESENT AND MEDICATIONS GIVEN FOR DIURESIS. WILL REMOVE MEAD AFTER LASIX HAS TIME TO WORK. NO OTHER NEEDS AT THIS TIME. CALL LIGHT IN REACH.
--- NOTE | 2023-01-24 12:10 | NUR ---
NADEGE RN INAT THE PATIENTS BEDSIDE TO FO VITALS AND ASSESSMENT. CASE MANAGEMTN AL IN TALKING WITH PATIENT AND FAMILY.
--- NOTE | 2023-01-24 14:15 | NUR ---
PATIENTS FAMILY HAS BEEN AT THE PATIENTS BEDSIDE ALL DAY. PATIENT UP WORKING WITH PHYSIACAL THERAPY NOW AT THIS TIME. PATIENT HAS BEEN SITTING IN THE CHAIR AND TOLERATING WELL. CALL LIGHT IN REACH. NO OTHER NEEDS AT THIS TIME.
--- NOTE | 2023-01-24 15:00 | NUR ---
ANNA LIGHT IN TO ASSIST PATIENT FROM CHAIR TO BED TO ALLOW PATIENT TO REST.
--- NOTE | 2023-01-24 16:00 | NUR ---
PATIENT WAS ABLE TO GET ABOUT AN HOUR OF REST THIS AFTERNOON.
--- NOTE | 2023-01-24 16:15 | NUR ---
PATIENTS FAMILY ARRIVED FROM OUT OF TOWN. THIS RN IN TO UPDATE THAT PAT[facility] ALSO [facility] PER MD RYAN CENTRAL LINE RIGHT IJ TO BE REMOVED BEFORE TRANSFER. PER MD NO NEED FOR PERIPHERAL LINE PLACEMENT. DOT ROSARIO RN HERE TO GET REPORT AND UPDATED ON PLAN OF CARE.
--- NOTE | 2023-01-24 16:30 | NUR ---
Notified by MORRIS at [facility], they will accept this pt tomorrow. Dr. Brooks notified. In and updated pt and family. Family will transport pt.
--- NOTE | 2023-01-24 16:30 | NUR ---
PT BEING TRANSFERED TO MED/SURG BY PTS PRIMARY RN. THIS RN TO ROOM TO ASSIST WITH MEAD CATHETER REMOVAL. MEAD REMOVED PER PROTOCOL. 1250ML CLEAR LIGHT YELLOW URINE REMOVED. PT TOLERATED WELL. DEPENDS IN PLACE.
--- NOTE | 2023-01-24 16:43 | NUR ---
THIS RN IN TO REMOVE PATIENTS CENTRAL LINE. PATIENTS LINE REMOVED PER POLICY. THIS RN AT THE BEDSIDE TO HOLD PRESSURE FOR 5 MINUTES AND THEN ADHESIVE WINDOW DRESSING PLACED OVER SITE. PATIENT TOELRATED WELL. AT THIS TIME OTHER RN IN TO REMOVE PATIENTS MEAD PER ORDERS. PATIENT BELONGINGS GATHERED AND SENT TO PATIENTS NEW ROOM. PATIENT REPORT GIVEN TO DOT CASTILLO. UPDATED ON PLAN OF CARE. NO OTHER QUESTIONS AT THIS TIME. PATIENT VITALS DONE AND THEN PATIENT [facility]IA BED WITH FIRE EXTINGUISHER MECHANIC STAFF.
--- NOTE | 2023-01-24 17:20 | NUR ---
PT. ADMIN INSULIN. WHILE EATING DINNER FRONT CROWN CAME OFF TOOTH. PT. C/O MILD PAIN AND ADMIN TYLENOL. CROWN PLACED IN CONTAINER FOR PT. DAUGHTER WHO IS CONTACTING DENTIST.
--- NOTE | 2023-01-24 17:38 | NUR ---
PT. FAMILY EXPRESSED CONCERNS ABOUT DC PLAN AND PT. ABILITY TO MANAGE HEALTH AND MENTAL STATUS. REQUEST TO SPEAK WITH DC REORDERING CLERK AND MD TOMORROW. WILL CONTACT.
--- NOTE | 2023-01-24 20:00 | NUR ---
BG CHECK AND ASSESSMENT COMPLETED. PT IS ORIENTED TO SELF AND PLACE. RESPIRATIONS EVEN AND REGULAR. DENIES NEEDS/COMPLAINTS ATT. CALL LIGHT WITHIN REACH.
--- NOTE | 2023-01-24 20:50 | NUR ---
MEDICATION ADMINISTRATION COMPLETED. PT DENIES NEEDS/COMPLAINTS ATT. CALL LIGHT WITHIN REACH.
--- NOTE | 2023-01-24 23:41 | NUR ---
ROUNDED ON PT. PT APPEARS TO BE SLEEPING COMFORTABLY. SPO2 CHECK 89% PLACED ON 2L NC FOR SPO2 >94% PER ORDER. PT SPO2 96% ON 2L. RESPIRATIONS EVEN AND REGULAR. CALL LIGHT WITHIN REACH.
--- NOTE | 2023-01-25 00:01 | NUR ---
pt MADE NPO AT THIS TIME. LIQUIDS REMOVED PER MD ORDER, pt VERBALIZED UNDERSTANDING. pt UP INDEPENDENTLY TO VOID, INDEPENDENT IN ROOM. NO SLIP SOCKS IN PLACE.
--- NOTE | 2023-01-25 01:29 | NUR ---
PT APPEARS TO BE SLEEPING COMFORTABLY. RESPIRATIONS EVEN AND REGULAR. REMAINS ON 2L NC. CALL LIGHT WITHIN REACH.
--- NOTE | 2023-01-25 04:44 | NUR ---
PT APPEARS TO BE SLEEPING COMFORTABLY. RESPIRATIONS EVEN AND REGULAR. SPO2 95% ON 2L NC. CALL LIGHT WITHIN REACH.
--- NOTE | 2023-01-25 05:28 | NUR ---
vss and i&o's complete. pt awoke to voice, sba with fww to bsc to void, voided 300mls urine and had smear bm. abdulkadir care done and clean attends in place. bed alarm resumed, 2lnc remains in place. no additional needs, call light in reach. primary rn storm aware.
[2023-01-25 05:32] VITALS: BP 136/68
--- NOTE | 2023-01-25 10:00 | NUR ---
PT. AMBULATED TO BATHROOM WITH FWW TO BATHROOM AND STEADY GAIT. ASSISTED WITH DRYING HAIR. ASSESSMENT COMPLETED. ALLEVYN PLACED ON ANTERIOR LEFT FOOT WHERE SCAB OPENED DURING SHOWERING. DAUGHTER AT BEDSIDE.
[2023-01-25] MEDS ORDERED: AMLODIPINE BESY10 MG PO (10:06)
[2023-01-25] MEDS ORDERED: LANTUS100 UNITS/ SUB-Q (10:07)
[2023-01-25] MEDS ORDERED: INSULIN AS100 UNIT/2 SUB-Q (10:09)
[2023-01-25] MEDS ORDERED: LIPITOR20 MG PO (10:11)
--- NOTE | 2023-01-25 10:45 | NUR ---
IGORVD CALL FROM PAUL AT [facility], THEY DO HAVE BEDS AVAILABLE AND MAYBE ABLE TO ADMIT THE PATIENT TODAY. CHART FAXED FOR REVIEW. PATIENT AND FAMILY UPDATED. FAMILY WILL HEAD OVER TO SEE THE FACILITY AT THIS TIME. YISEL CORREIA RN AND HANH CASTILLO NOTIFIED.
--- NOTE | 2023-01-25 11:07 | NUR ---
INTO ROOM TO SPEAK WITH PATIENT SON GREGORY AND DAUGHTER REGARDING CONCERNS WITH THE PATIENT DISCHARGE TO T. GREGORY STATES THAT THEY HAVE VISITED [facility] THIS MORNING AND BELIEVE THAT THE PATIENT WOULD NOT BE COMFORTABLE THERE SHE WOULD NO BE IN A PRIVATE ROOM. THE FAMILY ALSO HAS CONCERNS ABOUT THE MANAGEMENT OF THE PATIENT INSULIN WHILE SHE IS THERE. DISCUSSED THAT REQUEST CAN BE MADE FOR A PRIVATE ROOM. WHEN DISCUSSING THE CONCERNS REAGDRING THE PATIENT INSULIN IT APPEARS THAT SOME OF THE CONCERNS ARE RELATED TO [facility] MANAGEMENT OF HER DM. THE PATIENT SON AND DAUGHTER REQUESTING WE CHECK BED AVAILABILITY FOR [facility] BEFORE DISCHARGE TO T. PATIENT STATES SHE AGREES WITH HER FAMILIES PLANS AT THIS TIME. HAD A LONG CONVERSATION WITH PATIENT SON GREGORY AND DAUGHTER IN THE HALLWAY REGARDING THE STATE OF THE PATIENTS HOME. FAMILY STATES THAT THEY WILL NEED TO CLEAN THE HOME, REPLACE THE CARPET AND INSTALL SOME SAFTEY MEASURES PRIOR TO HER DISCHARGE. ADVISED FAMILY THAT I WILL CONTACT [facility] TO CHECK BED AVAILABILITY. WILL FOLLOW UP WITH STAFF AND FAMILY TOÑITO.
[2023-01-25 11:08] VITALS: BP 149/61
--- NOTE | 2023-01-25 11:31 | NUR ---
RECVD MESSAGE FROM ADAMA AT [facility], SHE WILL CHECK ON BED AVAILABILTY FOR NEXT WEEK AND RETURN MY CALL.
--- NOTE | 2023-01-25 11:50 | NUR ---
FAMILY REQUESTED SPIRITUAL CARE CONSULT. CONNECTED WITH PT-MORE ALERT, ABLE TO COMMUNICATE MUCH BETTER. SON GREGORY AND DAUGHTER KAREN DISCUSSED WITH ME THEIR CONCERN REGARDING PTS' CONDITION OF HER HOME. MUCH WORK NEEDS TO BE DONE THEY FEEL BEFORE SHE CAN RETURN AND CARE FOR HERSELF. DISCUSSED SNF OPTIONS, SAID THEY MIGHT WANT TO VISIT FACILITY. KOTS HAPPENING THEY FEEL VERY QUICKLY AND ARE TRYING TO GRASP WHAT IT ALL MEANS FOR PTS' CARE. GAVE ENCOURAGEMENT AND SUPPORT, SHARED WITH [facility] THEY CONCERNS. [facility] WILL FOLLOW UP.
[2023-01-25 13:44] VITALS: BP 150/60
--- NOTE | 2023-01-25 15:33 | NUR ---
AFTER EXTENSIVE CONVERSATION WITH THE PATIENT AND HER FAMILY, PATIENT HAS DECIDED SHE WOULD LIKE TO DISCHARGE TO [facility]. PATIENT SON GREGORY AND DAUGHTER KAREN DISCUSSED THE PROS AND CONS OF THEIR VISIT TO [facility] AND [facility]. THE PATIENT STATES SHE WOULD LIKE TO GO TO [facility] IT IS HERE IN TOWN AND CLOSER TO FRIENDS AND FAMILY. GREGORY AND KAREN STATE THAT THEY FEEL COMFORTABLE WITH THE DISCHARGE PLAN AT THIS TIME. PER MORRIS AT [facility] THEY WILL ACCEPT THE PATIENT TOMORROW BETWEEN -. DR. DAVIS AND STAFF UPDATED. PATIENTS FAMILY TO TRANSPORT PATIENT TO FACILITY. ORDERS,[facility] AND EM[facility] FAXED TO T.
--- NOTE | 2023-01-25 16:06 | NUR ---
ROUNDING ON PT. ASSESSMENT COMPLETED. DRESSING OVER FORMER CENTRAL LINE REMOVED AND REDNESS AND SCABBING NOTED WHERE ADHESIVE IRRITATION OCCURRED. PT. DENIES PAIN AND REQUESTS TO TAKE A NAP. FAMILY AT BEDSIDE.
--- NOTE | 2023-01-25 17:52 | NUR ---
DINNER DELIVERED TO PT. LONG ACTING INSULIN GIVEN. PT EATING DINNER. NO ADDITIONAL REQUESTS OR COMPLAINTS. FAMILY AT BEDSIDE. CALL LIGHT WITHIN REACH.
[2023-01-25 18:32] VITALS: BP 148/68
--- NOTE | 2023-01-25 19:28 | NUR ---
RECEIVED REPORT FROM DAY NURSE. PT IS SITTING UPRIGHT IN BED. DENIES NEEDS/COMPLAINTS ATT. CALL LIGHT WITHIN REACH.
--- NOTE | 2023-01-25 20:30 | NUR ---
PT ASSESSMENT COMPLETED. PT IS ALERT AND ORIENTED X3. PT DID NOT REQUIRE INSULIN COVERAGE THIS P.M. DENIES ANY OTHER NEEDS /COMPLAINTS ATT. CALL LIGHT WITHIN REACH.
[2023-01-25 20:42] VITALS: BP 146/62
--- NOTE | 2023-01-25 23:59 | NUR ---
ROUNDED ON PT. PT IS AWAKE REQUESTING PRN MEDICATION FOR SLEEP. TRAZADONE ADMINISTERED. PT DENIES ANY OTHER NEEDS ATT. CALL LIGHT WITHIN REACH.
--- NOTE | 2023-01-26 00:22 | NUR ---
ASSISTED PT TO RESTROOM. PT AMBULATES WELL WITH WALKER. CALL LIGHT WITHIN REACH.
--- NOTE | 2023-01-26 01:30 | NUR ---
ASSESSMENT COMPLETED. PT APPEARS TO BE SLEEPING COMFORTABLY, AROUSES EASILY. CALL LIGHT WITHIN REACH.
[2023-01-26 05:36] VITALS: BP 154/72
--- NOTE | 2023-01-26 08:20 | NUR ---
RT COLLECTED RAPID COVID 19 SWAB AT THIS TIME WITH NO COMPLICATIONS.
[2023-01-26 09:07] VITALS: BP 157/80
--- NOTE | 2023-01-26 09:10 | NUR ---
REPORT RECEIVED FROM NIGHT RN AND PT CARE RESUMED. PT. IS UP IN THE CHAIR WITH FAMILY AND DRESSED. MORNING MEDS ADMIN. AND ASSESSMENT COMPLETED. DISCUSSED DC PLAN WITH FAMILY.
[2023-01-26 09:27] VITALS: BP 180/75
--- NOTE | 2023-01-26 09:55 | NUR ---
ALL DISCHARGE INSTRUCTION REVIEWED WITH PT. AND FAMILY AND QUESTIONS ANSWERED.
--- NOTE | 2023-01-26 10:40 | NUR ---
REPORT CALLED TO LAQUITA
== END 2023-01-26 10:10 | disposition home or self-care (01) | DRG 637 ==
LOC: ED 17:12 → MS 21:07 → CCU 21:07 → MS 01-24 16:47
PROVIDERS: ADMIT Internal Medicine; ATTEND Internal Medicine
PROC: 0BH17EZ Insertion of Endotracheal Airway into Trachea, Via Natural or Artificial Opening (ICD-10-PCS; principal; 2023-01-21)
PROC: 4A133R1 Monitoring of Arterial Saturation, Peripheral, Percutaneous Approach (ICD-10-PCS; 2023-01-21)
PROC: 02HV33Z Insertion of Infusion Device into Superior Vena Cava, Percutaneous Approach (ICD-10-PCS; 2023-01-21)
PROC: 5A1945Z Respiratory Ventilation, 24-96 Consecutive Hours (ICD-10-PCS; 2023-01-21)
PROC: 3E033XZ Introduction of Vasopressor into Peripheral Vein, Percutaneous Approach (ICD-10-PCS; 2023-01-21)
DX: E11.10 Type 2 diabetes mellitus with ketoacidosis without coma (principal); G93.41 Metabolic encephalopathy; J96.01 Acute respiratory failure with hypoxia; M62.82 Rhabdomyolysis; N17.9 Acute kidney failure, unspecified; R65.10 Systemic inflammatory response syndrome (SIRS) of non-infectious origin without acute organ dysfunction; F41.9 Anxiety disorder, unspecified; Z20.822 Contact with and (suspected) exposure to COVID-19; I10 Essential (primary) hypertension; E03.9 Hypothyroidism, unspecified; E78.5 Hyperlipidemia, unspecified; Z98.890 Other specified postprocedural states; Z88.2 Allergy status to sulfonamides; Z79.4 Long term (current) use of insulin; Z79.899 Other long term (current) drug therapy; W18.39XA Other fall on same level, initial encounter
CPT/HCPCS: 36415; 36556; 36600; 51702; 70450; 71045; 80048; 80053; 80076; 81001; 82010; 82140; 82553; 82803; 83036; 83605; 83735; 84100; 84484; 85025; 85610; 87040; 87186; 87502; 93005; 93010; 94003; 94667; 94668; 94760; 97110; 97116; 97163; 97167; 97530; 99285-25; A9270; C9113; C9803; J1650; J1815; J1940; J2250; J2543; J2704; J3010; J3475; J3480; J3490; J7040; J7042; J7060; J7121; U0003